=== PATIENT | male | born 2000 | race African-American/Black ===

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

== ENCOUNTER 2020-12-12 20:19 | Emergency (ER) | payer OTHER ==
[2020-12-12 20:32] VITALS: BP 114/58; PULSE 82; TEMP 99; BMI 21.6
[2020-12-12] MEDS ORDERED: DIPHTH,PERTUSS(ACELL),TET 0.5 ML DISP.SYRIN IM ONE ×2 (20:32→20:42)
[2020-12-12] MEDS ORDERED: AMOX TR/POT CLAV 875MG/125MG TABLETS (FP) ONE (20:57)
[2020-12-12] MEDS ORDERED: AMOX TR/POT CLAV 875MG/125MG TABLETS (FP) PO ONE (20:57)
== END 2020-12-12 21:08 | disposition home or self-care (01) ==
LOC: FER 20:19
PROC: 3E0234Z Introduction of Serum, Toxoid and Vaccine into Muscle, Percutaneous Approach (ICD-10-PCS; principal; 2020-12-12)
DX: S61.254A Open bite of right ring finger without damage to nail, initial encounter (principal)
CPT/HCPCS: 90471; 90715; 99284-25

== ENCOUNTER 2021-02-12 18:28 | Emergency (ER) | payer OTHER ==
[2021-02-12 18:40] VITALS: BP 123/62; PULSE 78; TEMP 98.5; BMI 21.6
[2021-02-12] MEDS ORDERED: AZITHROMYCIN 500 MG TABLET PO ONE (19:24)
[2021-02-12] MEDS ORDERED: AZITHROMYCIN 500 MG TABLET ONE (20:32)
== END 2021-02-12 20:46 | disposition home or self-care (01) ==
LOC: FER 18:28
DX: R30.0 Dysuria (principal)
CPT/HCPCS: 36415; 81003; 87086; 87491; 87591; 99284-25

== ENCOUNTER 2021-06-04 16:35 | Emergency (ER) | payer OTHER ==
[2021-06-04 17:18] VITALS: BP 133/60; PULSE 64; TEMP 98.5; BMI 23.0
[2021-06-04] MEDS ORDERED: WATER FOR INJ,STERILE 10 ML ONE (17:44)
== END 2021-06-04 17:58 | disposition home or self-care (01) ==
LOC: FER 16:35
DX: R36.9 Urethral discharge, unspecified (principal)
CPT/HCPCS: 36415; 87491; 87591; 99283-25

== ENCOUNTER 2022-04-29 18:29 | Emergency (ER) | payer OTHER ==
[2022-04-29 18:35] VITALS: BP 113/75; PULSE 64; RESP 18; TEMP 99; BMI 21.6
[2022-04-29] MEDS ORDERED: AZITHROMYCIN 500 MG TABLET PO ONE (19:34)
[2022-04-29] MEDS ORDERED: AZITHROMYCIN 250 MG TABLET ONE (19:48)
== END 2022-04-29 20:19 | disposition home or self-care (01) ==
LOC: FER 18:29
PROC: 3E023GC Introduction of Other Therapeutic Substance into Muscle, Percutaneous Approach (ICD-10-PCS; principal; 2022-04-29)
DX: R36.9 Urethral discharge, unspecified (principal)
CPT/HCPCS: 36415; 86780; 87491; 87591; 99284-25

== ENCOUNTER 2022-10-22 16:51 | Emergency (ER) | payer OTHER ==
[2022-10-22 17:03] VITALS: BP 129/73; PULSE 69; RESP 20; TEMP 99.5; BMI 21.6
== END 2022-10-22 17:32 | disposition home or self-care (01) ==
LOC: FER 16:51
DX: R76.8 Other specified abnormal immunological findings in serum (principal)
CPT/HCPCS: 36415; 86695; 86696; 87529; 99283-25

== ENCOUNTER 2022-11-15 22:28 | Emergency (ER) | payer OTHER ==
[2022-11-15 22:35] VITALS: BP 122/63; PULSE 54; RESP 16; TEMP 98.5; BMI 21.6
[2022-11-15] MEDS ORDERED: AZITHROMYCIN 500 MG TABLET PO ONE (23:03)
[2022-11-15] MEDS ORDERED: AZITHROMYCIN 500 MG TABLET ONE (23:14)
== END 2022-11-15 23:25 | disposition home or self-care (01) ==
LOC: FER 22:28
DX: R36.9 Urethral discharge, unspecified (principal)
CPT/HCPCS: 36415; 87491; 87591; 99284-25